=== PATIENT | female | born 1980 ===

== ENCOUNTER → 2021-02-07 15:10 | Outpatient (BNVA) | payer OTHER, SELFPAY | PROVIDERS: PCP Pediatrics; Visit Provider Nurse Practitioner Family | DX: R10.9 Unspecified abdominal pain (principal); G89.29 Other chronic pain | CPT/HCPCS: 99202 ==

== ENCOUNTER → 2024-07-04 11:24 | Outpatient (REF) | payer OTHER, SELFPAY ==
--- NOTE | 2024-07-04 | ECG_ITS ---
Test Reason : [facility] drug therapy Blood Pressure : */* mmHG Vent. Rate : 76 BPM Atrial Rate : 76 BPM P-R Int : 136 ms QRS Dur : 82 ms QT Int : 358 ms P-R-T Axes : 58 65 26 degrees QTcB Int : 402 ms Normal sinus rhythm with sinus arrhythmia Normal ECG No previous ECGs available Referred By: Mitzy Mcneil Electronically Signed By: MORGAN VILLEGAS
--- OUTSIDE RECORDS SUMMARY | 2024-07-04 13:56 | XMS_ITS | Clinical Summary ---
Author Organization [facility] Address [address] [place] [address] Care Team Providers Care Peat Shredder Tender Name Role Phone Heydi Trinidad MD Primary Care Provid er Allergies Active Allergy Reactions Criticality Noted Date Comments Ketamine 03/19/2022 Morphine 03/19/2022 Promethazine 03/19/2022 Active Problems Problem Noted Date Diagnosed Date Chronic pancreatitis 03/19/2022 Social History Tobacco Use Types Packs/Day Years Used Date Smoking Tobacco: Never Assessed Sex and Gender Information Value Date Recorded Sex Assigned at Female 09/23/2021 2:26 PM EDT Gender Identity Not on file Sexual Orientation Not on file Job Start Date Occupation Industry Not on file Not on file Not on file Plan of Treatment Health Maintenance Due Date Last Done Comments Hepatitis B Vaccines (1 of 3 - 3-dose series) 1980 Hepatitis C Screening 1980 COVID-19 Vaccine (#1) 06/23/1981 Depression Screening 1992 Preventative Health Evaluation 1998 DTap / Tdap / Td (1 - Tdap) 12/25/1999 Cervical Cancer Screening (P ap Smear) 2001 Influenza Vaccine (#1) 2023 12/28/2013 Pneumococcal Vaccine Aged Out 04/05/2006 No long er eligible based on patient's age to complete this topic RSV Ped < 20 months Aged Out No longe r eligible based on patient's age to complete this topic Care Teams Peat Shredder Tender Relationship Specialty Start Date End Date Heydi Trinidad MD PCP - General Internal Medicine 09/23/21
--- OUTSIDE RECORDS SUMMARY | 2024-07-04 13:56 | XMS_ITS | Encounter Summary ---
Author Organization [facility] Address [address] [place] [address] Care Team Providers Care Senior Technical Business Analyst Name Role Phone Jennifer Toussaint MD Primary Care Provider [phone] Encounter Details Date Type Department Care Team (Latest Contact Info) Description 06/28/2024 2:59 PM EDT - 06/28/2024 11:59 PM EDT Hospital Encounter [facility] [address] [place] [phone] Chronic recurrent pancreatitis (CMS/HCC) (Primary Dx) Discharge Disposition: Home or Self Care Social History Tobacco Use Types Packs/Day Years Used Date Smoking Tobacco: Every Day Cigarettes Last attempted to quit: 02/20/2012 Smokeless Tobacco: Never Alcohol Use Standard Drinks/Week Comments No 0 (1 standard drink = 0.6 oz pur e alcohol) Comments Unknown Sex and Gender Information Value Date Recorded Sex Assigned at Female 05/03/2024 3:31 PM EST Legal Sex Female 10:20 AM EST Gender Identity Female 05/03/2024 3:31 PM EST Sexual Orientation Straight 05/03/2024 3: 31 PM EST documented as of this encounter Medications at Time of Discharge cloNIDine (CATAPRES) 0.2 mg tablet TAKE 1 TABLET BY MOUTH EVERY DAY 90 tablet 05/05/2024 dicyclomine (BENTYL) 10 mg capsule Take 1 Capsule by mouth 4 times daily (before meals and nightly). 02/01/2024 gabapentin (NEURONTIN) 400 mg capsule Take 1 Capsule by mouth 3 times daily. 02/01/2024 hydrOXYzine HCL (ATARAX) 25 mg tablet TAKE 1-2 TABLET BY MOUTH EVERY NIGHT AT BEDTIME NEEDED FOR INSOMNIA 01/26/2024 lamoTRIgine (LaMICtal) 200 mg tablet Take 1 tablet (200 mg total) by mouth 1 (one) time each day. 12/21/2023 LORazepam (ATIVAN) 1 mg tablet PLEASE SEE ATTACHED FOR DETAILED DIRECTIONS 01/25/2024 omeprazole (PriLOSEC) [address] capsule Take 1 capsule (40 mg total) by mouth 1 (one) time each day. 07/19/2023 ondansetron ODT (ZOFRAN-ODT) 4 mg disintegrating tablet TAKE 1 TABLET BY MOUTH EVERY 8 HOURS NEEDED FOR NAUSEA 21 tablet 1 06/08/2024 QUEtiapine (SEROquel) 100 mg tablet Take 1 tablet (100 mg total) by mouth at bedtime. 01/11/2024 documented as of this encounter Discharge Disposition Disposition Code Departure Means Destination Home or Self Care documented in this encounter Progress Notes * Leanne Sharma RN - 06/28/2024 3:00 PM EDT Pt arrives for annetta cath flush with family member. Port accessed and positive blood return obtained. Port flushed per protocol then deaccessed. Pt tolerated well. Pt given next appointment reminder in 6 weeks . Pt discharged with steady gait documented in this encounter Plan of Treatment Upcoming Encounters Date Type Department Care Team (Late st Contact Info) Description 08/09/2024 3:00 PM EDT Appointment [facility] [address] [place] [address] [address] [place] [phone] 09/07/2024 1:15 PM EDT Office Visit Adult Medicine [address] [phone] Jennifer Toussaint MD [address] [place] [id number] documented as of this encounter Visit Diagnoses Diagnosis Chronic recurrent pancreatitis (CMS/HCC)- Primary documented in this encounter Administered Medications Inactive Administered Medications - up to 3 most recent administrations Medication Order MAR Action Action Date Dose Rate Site sodium chloride 0.9 % flush 10 mL 10 mL, intravenous, As needed, line care, Starting on Wed06/28/24 at 1548Indications:Chronic recurrent pancreatitis (CMS/HCC) Given 06/28/2024 3:48 PM EDT 10 mL documented in this encounter Orders Medications Ordered That Mukesh ht Not Have Been Administered Count Last Ordered Date First Ordered Date sodium chloride 0.9 % flush 10 mL 1 025 documented in this encounter Care Teams Senior Technical Business Analyst Relationship Specialty Start Date End Date Jennifer Toussaint MD [address] [place] [id number] PCP - General Internal Medicine 03/08/24 documented as of this encounter
--- OUTSIDE RECORDS SUMMARY | 2024-07-04 13:56 | XMS_ITS | Clinical Summary ---
Author Organization [facility] Address [address] [place] [address] Phone Care Team Providers Care Software Engineer Intern Name Role Phone Jennifer Toussaint MD Primary Care Provider [phone] Allergies Active Allergy Reactions Criticality Noted Date Comments Ketamine GI intolerance,Hallucinations 2018 Morphine Rash Low 10/24/2015 Phenergan Plain 10/24/2015 Promethazine Rash Low 12/20/2018 Medications dicyclomine (BENTYL) 10 mg capsule Take 1 Capsule by mouth 4 times daily (before meals and nightly). 02/01/20 24 Active gabapentin (NEURONTIN) 400 mg capsule Take 1 Capsule by mouth 3 times daily. 02/01/20 24 Active hydrOXYzine HCL (ATARAX) 25 mg tablet TAKE 1-2 TABLET BY MOUTH EVERY NIGHT AT BEDTIME NEEDED FOR INSOMNIA 01/26/20 24 Active lamoTRIgine (LaMICtal) 200 mg tablet Take 1 tablet (200 mg total) by mouth 1 (one) time each day. 12/21/19 24 Active LORazepam (ATIVAN) 1 mg tablet PLEASE SEE ATTACHED FOR DETAILED DIRECTIONS 01/25/20 24 Active omeprazole (PriLOSEC) [address] capsule Take 1 capsule (40 mg total) by mouth 1 (one) time each day. 07/19/19 24 Active QUEtiapine (SEROquel) 100 mg tablet Take 1 tablet (100 mg total) by mouth at bedtime. 01/11/20 24 Active cloNIDine (CATAPRES) 0.2 mg tablet TAKE 1 TABLET BY MOUTH EVERY DAY 90 tablet 05/05/19 25 Active ondansetron ODT (ZOFRAN-ODT) 4 mg disintegrating tablet TAKE 1 TABLET BY MOUTH EVERY 8 HOURS NEEDED FOR NAUSEA 21 tablet 1 06/09/19 25 Active ondansetron ODT (ZOFRAN-ODT) 4 mg disintegrating tablet Take 1 tablet (4 mg total) by mouth every 8 (eight) hours if needed. 12/15/19 24 2024 Discontinued Active Problems Problem Noted Date Diagnosed Date Anxiety 03/21/2024 Gastroparesis 03/21/2024 Overview (03/21/2024): GE study In 07/16 abnormal at 23% in 90 minutes Insomnia 03/21/2024 Seizure 08/20/2021 Elevated alkaline phosphatase level 07/29/2018 Elevated LFTs 07/29/2018 Hiatal hernia 09/03/2014 Chronic recurrent pancreatitis 12/16/2012 Overview (03/21/2024): Chronic abdominal pain [facility] IBS (irritable bowel syndrome) 02/24/2012 Encounters Date Type Department Care Team Description 06/28/2024 2:59 PM EDT - 06/28/2024 11:59 PM EDT Hospital Encounter [address] [phone] Chronic recurrent pancreatitis (CMS/HCC) (Primary Dx) Discharge Disposition: Home or Self Care 05/03/2024 3:30 PM EST - 05/03/2024 11:59 PM EST Hospital Encounter [address] [phone] Chronic recurrent pancreatitis (CMS/HCC) [K86.1] (Primary Dx) Discharge Disposition: Home or Self Care from Last 3 Months Immunizations Name Administration Dates Next Due Influenza trivalent, 0.5mL, preservative free (Fluarix; FluLaval; Fluzone) ages 6mo and older (Afluria) 3 years and older 12/28/2013 Pneumococcal polysaccharide 23 valent (Pneumovax 23) 2yo and older 04/05/2006 Td Tetanus diptheria (Tdvax) 7yo and older 07/14 Surgical History Surgery Date Site/Laterality Comments SECTION 2003 PROCEDURE: HISTORICAL DELIVERY ESOPHAGOGASTRODUODENOSCOPY 03/15/2009 PROCEDURE: [place] EGD TRANSORAL BIOPSY SINGLE/MULTIPLE; COMMENT: Dr Paul - gastritis, H. pylori negative. OTHER SURGICAL HISTORY PROCEDURE: CATH IMPL VASC ACCESS PORTAL; COMMENT: Poor venous access ESOPHAGOGASTRODUODENOSCOPY 03/12/2021 PROCEDURE: TN EGD TRANSORAL BIOPSY SINGLE/MULTIPLE; COMMENT: biopsy pending Medical History Medical History Date Comments Anxiety DX:Anxiety Gastroparesis 03/21/2010 DX:Gastroparesis ; COMMENT: Gastric emptying study performed at [facility] on 03/21/10. Findings consistent with gastroparesis.; GE study In 07/16 abnormal at 23% in 90 minutes Insomnia DX:Insomnia IBS (irritable bowel syndrome) 02/24/2012 D X:IBS (irritable bowel syndrome) Epigastric pain DX:Epigastric pa in History of chronic pancreatitis DX:History of chronic pancreatitis History of alcohol use DX:Histor y of alcohol use; COMMENT: No alcohol consumed in 3 months Depressive disorder DX:Depressiv e disorder Gastritis DX:Gastritis Seizure (CMS/HCC) 08/20/2021 DX:Seizure (HC C) Family History Medical History Relation Name Comments Hypertension Brother 1 Diabetes Father Breast cancer Father's side sister Hypertension Mother Colon cancer Neg Hx Ovarian cancer Neg Hx Relation Name Status Comments Brother 1 Brother 2 Alive HTN Brother 3 Alive Father Alive diabetes, menta l issues; limited contact Father's side Maternal Grandfather emphyse ma Maternal Grandmother emphyse ma Mother (Age 54) suicide Paternal Grandfather liver c ancer Paternal Grandmother Alive Son Alive healthy Social History Tobacco Use Types Packs/Day Years [...] Orientation Straight 05/03/2024 3: 31 PM EST Obstetrics History Last Filed Vital Signs Vital Sign Reading Time Taken Comments Blood Pressure 104/64 02/01/2024 11:45 AM EDT Pulse 78 02/01/2024 11:45 AM EDT Temperature - - Respiratory Rate - - Oxygen Saturation - - Inhaled Oxygen Concentration - - Weight 63.5 kg (140 lb) 02/01/2024 11:45 AM EDT Height 154.9 cm (5' 1 ) 02/01/2024 11:45 AM EDT Body Mass Index 26.45 02/01/2024 11:45 AM EDT Plan of Treatment Upcoming Encounters Date Type Department Care Team (Late st Contact Info) Description 08/09/2024 3:00 PM EDT Appointment [facility] [address] 2nd [place] [phone] 09/07/2024 1:15 PM EDT Office Visit Adult Medicine [address] [phone] Jennifer Toussaint MD [address] [place] [phone] Health Maintenance Due Date Last Done Comments Breast Cancer Screening 1980 Hepatitis B Vaccines (1 of 3 - 19+ 3-dose series) 12/25/1999 Pneumococcal Vaccine: Pediatrics (0 to 5 Years) and At-Risk Patients (6 to 64 Years) (2 of 2 - PCV) 04/05/2007 04/05/2006 DTaP,Tdap,and Td Vaccines (2 - Td or Tdap) 07/15/2019 07/14/2009 Cervical Cancer Screening: P ap Smear 06/10/2021 06/10/2018, 06/10/2018, 06/10/2018 Depression Screening 03/03/2022 HIV Screening 03/03/2022 Social Influencers of Health Screening 03/03/2022 COVID-19 Vaccine (1 - 2023-2 5 season) 2023 Influenza Vaccine (#1) 2023 12/28/2013 Cholesterol Screening (Lipid Panel) 04/22/2025 04/22/2020 Hepatitis C Screening Completed 02/01/2023 HIB Vaccines Aged Out No longer eligi ble based on patient's age to complete this topic HPV Vaccines Aged Out No longer eligi ble based on patient's age to complete this topic Hepatitis A Vaccines Aged Out No long er eligible based on patient's age to complete this topic IPV Vaccines Aged Out No longer eligi ble based on patient's age to complete this topic MMR Vaccines Aged Out No longer eligi ble based on patient's age to complete this topic Meningococcal ACWY Vaccine Aged Out N o longer eligible based on patient's age to complete this topic Meningococcal B Vacine Aged Out No lo nger eligible based on patient's age to complete this topic RSV Immunization Patients Under 20 months Aged Out No longer eligible b ased on patient's age to complete this topic Varicella Vaccines Aged Out No longer eligible based on patient's age to complete this topic Procedures Procedure Name Priority Date/Time Associated Diagnosis Comments HEPATITIS C SCREENING Routine 02/01/2023 LIPID PANEL Routine 04/22/2020 PAP SMEAR Routine 06/10/2018 from Last 3 Months or Most Recently Relevant to Health Maintenance Results * Hepatitis C Screening (02/01/2023) Hepatitis C Screening abstracted Historical Provider HEALTH MAINTENANCE Final Result * (ABNORMAL) Lipid panel (04/22/2020) LDL/HDL Ratio 4 0 - 4 Triglycerides 230(A) 0 - 150 mg/dL Cholesterol 187 0 - 200 mg/dL HDL 48 >=40 mg/dL LDL Cholesterol 93 0 - 100 mg/dL Blood Venous blood specimen / Unknown us Historical Provider MD LAB BLOOD ORDERABLES Yenny l Result * Pap smear (06/10/2018) 06/10/2018 Narrative HISTORICAL TESTING LAB RESULTING AGENCY - 06/16/2018 3:24 PM EDT [id number] THINPREP PAP, IMAGED: NEGATIVE FOR SQUAMOUS INTRAEPITHELIAL LESION AND MALIGNANCY . REACTIVE CELLULAR CHANGES. KEKE DUNN , CT(ASCP) (CASE SCREENED 06 15 2018) GENOVEVA BAL M.D. , PATHOLOGIST (CASE ELECTRONICALLY SIGNED 06 15 2018) RESULT OF APTIMA HIGH RISK HPV ASSAY: HIGH RISK HPV: ??NEGATIVE (SEROTYPES 16,18,31,33,35,39,45,51,52,56,58,59,66,68) COMPLETED ON 2018-06-14 ADEQUACY: SATISFACTORY ENDOCERVICAL/TRANSFORMATION ZONE COMPONENT PRESENT. SOURCE: THINPREP PAP HPV ANY DX: ??REFLEX 16 AND 18, CERVICAL, IMAGED CLINICAL INFORMATION: HPV ANY DIAGNOSIS. PAP HX NEG, Z12.4 Shelli Grubbs [facility] LAB CYTOLOGY ORDERABLES Final Result HISTORICAL TESTING LAB RESULTING AGENCY from Last 3 Months or Most Recently Relevant to Health Maintenance [place] [address] [place] [address] [employer] Care Teams Software Engineer Intern Relationship Specialty Start Date End Date Jennifer Toussaint MD [address] [place] [phone] PCP - General Internal Medicine 03/08/24
== END ==
LOC: HO.CARD 11:24
PROVIDERS: Visit Provider Registered Nurse
DX: Z79.899 Other long term (current) drug therapy (principal)
CPT/HCPCS: 93005

== ENCOUNTER → 2024-07-04 11:24 | Outpatient (BNV) | payer OTHER, SELFPAY | PROVIDERS: Visit Provider Internal Medicine | DX: Z79.899 Other long term (current) drug therapy (principal) | CPT/HCPCS: 93010 ==